=== PATIENT | male | born 1960 | race Caucasian/White ===

== ENCOUNTER 2017-05-15 09:30 | Emergency (ER) | payer OTHER ==
[~2017-05-15] VITALS: Ht 182.9 cm; Wt 92.9 kg
[~2017-05-15 09:30] MED LIST: ALBU1AER9 PO; EPP3/2 IM; FEXO1TAB46 PO; HYDR12.55; MONT4GRA PO; NXM/40 PO; SUCR1TAB29 PO
[2017-05-15 09:31] VITALS: TEMP 36.8; Ht 182.9 cm; Wt 92.9 kg
[2017-05-15] MEDS ORDERED: ONDANSETRON INJ 2 MG/ML 2 ML VIAL IV STA (09:51)
[2017-05-15] MEDS ORDERED: SODIUM CHLORIDE 0.9% 1000ML 2,000 ML IV STA (09:51)
[2017-05-15] MEDS ORDERED: VLM5CL PO (10:11)
[2017-05-15] MEDS ORDERED: FLNIN/ NAE (10:11)
[2017-05-15] MEDS ORDERED: HYDR25TA5 PO (10:11)
[2017-05-15] MEDS ORDERED: EPP3/2 IM (10:16)
[2017-05-15 10:24] LABS: BASO % 0.1 %; BASO ABS # 0.01 K/uL (0-0.2); COMPLETE YES; HEMATOCRIT 52.2 % (42-52); IG% 0.6 %; LYMPH % 16.5 %; MEAN CELL VOLUME 87.6 fL (80-100); MEAN CORPUSCULAR HEMOGLOBIN 30.4 pg (25-34); MEAN CORPUSCULAR HGB CONC 34.7 g/dl (32-36); MEAN PLATELET VOLUME 11.4 fL (7.4-10.4); MONO % 8.9 %; NEUT % 72.9 %; PLATELET COUNT 196 K/uL (130-400); RED BLOOD COUNT 5.96 M/uL (4.7-6.1); WHITE BLOOD COUNT 9.07 K/uL (4.8-10.8)
[2017-05-15 10:42] LABS: BUN/CREATININE RATIO 13.3 (10-20); CALCIUM 8.6 mg/dl (8.5-10.1); CREATININE 1.31 mg/dl (0.60-1.40); POTASSIUM 3.4 mmol/L (3.5-5.1)
--- NOTE | 2017-05-15 10:54 | DIAGNOSTIC IMAGING REPORT ---
ABDOMEN 2VIEW W/PA CHEST RTN HISTORY: 57 years-old Male abd pain w/ diarrhea acute generalized abdominal pain with diarrhea COMPARISON: None available TECHNIQUE: PA view the chest with erect and supine views of the abdomen FINDINGS: Cardiomediastinal and hilar silhouettes are within normal limits. No pneumothorax, pleural effusion, focal airspace consolidation or overt pulmonary edema. Bones of the chest appear grossly intact. Bowel gas pattern is nonobstructive. Multiple air-fluid levels are seen within bowel throughout the abdomen which appears to be within both large and small bowel. No pneumatosis or pneumoperitoneum. No organomegaly or urolith. Mild degenerative changes of the spine. IMPRESSION: 1. Nonobstructive bowel gas pattern with multiple air-fluid levels within bowel throughout the abdomen suggesting enteritis with diarrheal state. 2. No pneumoperitoneum or pneumatosis. 3. No acute cardiopulmonary process. The above report was generated using voice recognition software. It may contain grammatical, syntax or spelling errors. Electronically signed by: Ronnell Rubio M.D. 05/15/2017 10:52 AM Dictated Date/Time: 05/15/2017 10:49 AM
[2017-05-15 11:58] LABS: MANUAL MICROSCOPIC REQUIRED? NO; REVIEW REQ? NO; URINE APPEARANCE CLEAR (CLEAR); URINE BILIRUBIN NEG (NEG); URINE COLOR DK YELLOW; URINE NITRITE NEG (NEG); URINE PH 5.5 (4.5-7.5); URINE SPECIFIC GRAVITY 1.024 (1.000-1.030); UROBILINOGEN NEG (NEG); ZZUR CULT IF INDIC CLEAN CATCH NO
[2017-05-15 13:45] VITALS: BP 150/96; PULSE 87; O2SAT 95
--- NOTE | 2017-05-15 15:22 | EMERGENCY ROOM VISIT NOTE ---
History Report prepared by Maryibjermaine: Deedee Faust Under the Supervision of: Katy MartinezO. First contact with patient: 09:42 Chief Complaint: DIARRHEA Stated Complaint: STOMACH FLU History of Present Illness The patient is a 57 year old male who presents to the Emergency Room with complaints of persistent diarrhea since last night. He states "everything is running through me". So far today he has had 2 watery bowel movements. He believes he has the stomach flu, but has not been vomiting, although he is nauseous. He notes his Father is in a [facility]p and has a history of C-Diff, so he's unsure if he could have picked that up. He denies any recent travel, backpacking, hiking or recent antibiotic use. He has never undergone abdominal surgery. The patient denies headache, change in vision, fevers, chest pain, shortness of breath, abdominal pain, pain with urination, and melena. He does not take daily blood thinners. Source of History: patient Onset: last night Position: other (global) Timing: other (persistent) Associated Symptoms: + nausea, No fevers, No headache, No chest pain, No SOB , No vomiting, No abdominal pain, No melena, No urinary symptoms Review of Systems See HPI for pertinent positives & negatives. A total of 10 systems reviewed and were otherwise negative. Past Medical & Surgical Medical Problems: (1) Hypertension Surgical Problems: (1) S/P rotator cuff repair Family History Hypertension Social History Smoking Status: Never Smoker Alcohol Use: occasionally Drug Use: none Marital Status: Housing Status: lives with significant other Occupation Status: retired Current/Historical Medications Scheduled Epinephrine (Epipen), 0.3 MG IM UD Esomeprazole Magnesium (Nexium), 40 MG PO HS Fexofenadine Hcl (Suma), 180 MG PO QAM Fluticasone Propionate (Fluticasone Propionate), 1 SPRAY SHANTELL QAM Hydrochlorothiazide (Hydrochlorothiazide), 25 MG PO QAM Montelukast Sodium (Singulair), 4 MG PO HS Sucralfate (Carafate), 1 GM PO QID Scheduled PRN Diazepam (Diazepam), 0.5 TAB PO Q8H PRN for Anxiety Allergies Coded Allergies: Azithromycin (Unverified Allergy, Severe, SHORTNESS OF BREATH, 05/15/17) Latex (Unverified Allergy, Severe, HIVES, 05/15/17) Adhesives (Verified Allergy, Unknown, hives, 05/15/17) Bacitracin (Verified Allergy, Unknown, hives, 05/15/17) Neomycin (Verified Allergy, Unknown, hives, 05/15/17) Polymyxin B (Verified Allergy, Unknown, hives, 05/15/17) Physical Exam Vital Signs Date Time Temp Pulse Resp B/P (MAP) Pulse Ox O2 Delivery O2 Flow Rate FiO2 05/15/17 13:45 87 18 150/96 95 05/15/17 11:35 83 18 138/88 95 Room Air 05/15/17 09:31 36.8 99 17 184/116 95 Room Air Physical Exam GENERAL: Sitting up in bed, alert, well appearing, well nourished, no distress, non-toxic EYE EXAM: normal conjunctiva. OROPHARYNX: no exudate, no erythema, lips, buccal mucosa, and tongue normal and mucous membranes are moist NECK: supple, no nuchal rigidity, no adenopathy, non-tender LUNGS: Clear to auscultation. Normal chest wall mechanics HEART: no murmurs, S1 normal and S2 normal ABDOMEN: abdomen soft, non-tender, normo-active bowel sounds, no masses, no rebound or guarding. BACK: Back is symmetrical on inspection and there is no deformity, no midline tenderness, no CVA tenderness. SKIN: no rashes and no bruising UPPER EXTREMITIES: upper extremities are grossly normal. LOWER EXTREMITIES: No pitting edema. NEURO EXAM: Normal sensorium, cranial nerves II-XII intact, normal speech, no weakness of arms, no weakness of legs. Medical Decision & Procedures ER Provider Diagnostic Interpretation: Radiology results as stated below per my review and the radiologist's interpretation: ABDOMEN 2VIEW W/PA CHEST RTN HISTORY: 57 years-old Male abd pain w/ diarrhea acute generalized abdominal pain with diarrhea COMPARISON: None available TECHNIQUE: PA view the chest with erect and supine views of the abdomen FINDINGS: Cardiomediastinal and hilar silhouettes are within normal limits. No pneumothorax, pleural effusion, focal airspace consolidation or overt pulmonary edema. Bones of the chest appear grossly intact. Bowel gas pattern is nonobstructive. Multiple air-fluid levels are seen within bowel throughout the abdomen which appears to be within both large and small bowel. No pneumatosis or pneumoperitoneum. No organomegaly or urolith. Mild degenerative changes of the spine. IMPRESSION: 1. Nonobstructive bowel gas pattern with multiple air-fluid levels within bowel throughout the abdomen suggesting enteritis with diarrheal state. 2. No pneumoperitoneum or pneumatosis. 3. No acute cardiopulmonary process. The above report was generated using voice recognition software. It may contain grammatical, syntax or spelling errors. Electronically signed by: Ronnell Rubio M.D. 05/15/2017 10:52 AM Laboratory Results 05/15/17 09:57 Red Blood Count 5.96, Mean Corpuscular Volume 87.6, Mean Corpuscular Hemoglobin 30.4, Mean Corpuscular Hemoglobin Concent 34.7, Mean Platelet Volume 11.4, Neutrophils (%) (Auto) 72.9, Lymphocytes (%) (Auto) 16.5, Monocytes (%) (Auto) 8.9, Eosinophils (%) (Auto) 1.0, Basophils (%) (Auto) 0.1, Neutrophils # (Auto) 6.61, Lymphocytes # (Auto) 1.50, Monocytes # (Auto) 0.81, Eosinophils # (Auto) 0.09, Basophils # (Auto) 0.01 05/15/17 09:57 Test 05/15/17 09:57 05/15/17 11:42 White Blood Count 9.07 K/uL (4.8-10.8) Red Blood Count 5.96 M/uL (4.7-6.1) Hemoglobin 18.1 g/dL (14.0-18.0) Hematocrit 52.2 % (42-52) Mean Corpuscular Volume 87.6 fL (80-100) Mean Corpuscular Hemoglobin 30.4 pg (25-34) Mean Corpuscular Hemoglobin Concent 34.7 g/dl (32-36) Platelet Count 196 K/uL (130-400) Mean Platelet Volume 11.4 fL (7.4-10.4) Neutrophils (%) (Auto) 72.9 % Lymphocytes (%) (Auto) 16.5 % Monocytes (%) (Auto) 8.9 % Eosinophils (%) (Auto) 1.0 % Basophils (%) (Auto) 0.1 % Neutrophils # (Auto) 6.61 K/uL (1.4-6.5) Lymphocytes # (Auto) 1.50 K/uL (1.2-3.4) Monocytes # (Auto) 0.81 K/uL (0.11-0.59) Eosinophils # (Auto) 0.09 K/uL (0-0.5) Basophils # (Auto) 0.01 K/uL (0-0.2) RDW Standard Deviation 43.5 fL (36.4-46.3) RDW Coefficient of Variation 13.7 % (11.5-14.5) Immature Granulocyte % (Auto) 0.6 % Immature Granulocyte # (Auto) 0.05 K/uL (0.00-0.02) Anion Gap 8.0 mmol/L (3-11) Est Creatinine Clear Calc Drug Dose 66.7 ml/min Estimated GFR () 68.6 Estimated GFR (Non- 59.2 BUN/Creatinine Ratio 13.3 (10-20) Calcium Level 8.6 mg/dl (8.5-10.1) Total Bilirubin 1.1 mg/dl (0.2-1) Direct Bilirubin 0.2 mg/dl (0-0.2) Aspartate Amino Transf (AST/SGOT) 26 U/L (15-37) Alanine Aminotransferase (ALT/SGPT) 49 U/L (12-78) Alkaline Phosphatase 99 U/L (45-117) Total Protein 7.7 gm/dl (6.4-8.2) Albumin 3.8 gm/dl (3.4-5.0) Lipase 124 U/L (73-393) Urine Color DK YELLOW Urine Appearance CLEAR (CLEAR) Urine pH 5.5 (4.5-7.5) Urine Specific Orion 1.024 (1.000-1.030) Urine Protein NEG (NEG) Urine Glucose (UA) NEG (NEG) Urine Ketones NEG (NEG) Urine Occult Blood NEG (NEG) Urine Nitrite NEG (NEG) Urine Bilirubin NEG (NEG) Urine Urobilinogen NEG (NEG) Urine Leukocyte Esterase NEG (NEG) Urine WBC (Auto) 1-5 /hpf (0-5) Urine RBC (Auto) 0-4 /hpf (0-4) Urine Hyaline Casts (Auto) 1-5 /lpf (0-5) Urine Epithelial Cells (Auto) 5-10 /lpf (0-5) Urine Bacteria (Auto) NEG (NEG) Date/Time Source Procedure Growth Status 05/15/17 10:10 Stool C.difficile Toxin B Gene (PCR) - Final No C. difficile toxin B gene detected Complete Laboratory results per my review. Medications Administered Medications (Trade) Dose Ordered Sig/Samir Route Start Time Stop Time Status Last Admin Dose Admin Sodium Chloride 2,000 ml @ 999 mls/hr Q2H1M STAT IV 05/15/17 09:51 05/15/17 11:51 DC 05/15/17 10:15 999 MLS/HR Ondansetron HCl (Zofran Inj) 4 mg NOW STAT IV 05/15/17 09:51 05/15/17 09:53 DC 05/15/17 10:15 4 MG ED Course ED COURSE: Vital signs were reviewed and showed the patient is hypertensive and tachycardic. The patients medical record was reviewed The above diagnostic studies were performed and reviewed. ED treatments and interventions as stated above. 0946: The patient was evaluated in room A9. A complete history and physical examination was performed. 0951: Zofran 4 mg IV, NSS 2000 ml @ 999 mls/hr IV. 1210: Upon reevaluation, the patient is feeling well and resting comfortably. I discussed my findings with the patient and he understands and agrees with the treatment plan. Based on the patients age, coexisting illnesses, exam and lab findings the decision to treat as an outpatient was made. The patient remained stable while under my care. The patient appeared well at the time of discharge. Medical Decision Differential diagnoses includes but is not limited to gastritis, peptic ulcer disease, GERD, gallbladder disease, pancreatitis, small bowel obstruction, acute coronary syndrome, pericarditis, ischemic bowel, irritable bowel disease, irritable bowel syndrome, appendicitis, diverticulitis, malignancy, hernia, urinary tract infection, torsion, perforation, trauma, infectious. Patient is a 57-year-old male who presents to ER for nausea associated with profuse diarrhea which started in the past 24 hours. He is on has 2 bowel movements this morning. No blood in his stool or dark tarry stools. No recent travel, trips, drinking from streams or recent antibiotics. He was just in the [facility] and concerned about C. difficile. Afebrile. Vitals are stable. CBC along with BMP, LFTs, bilirubin and lipase is unremarkable. UA was negative. CT was negative. On repeat evaluation his abdominal exam was completely benign. Obstruction series was negative. Patient was updated regards to findings. Patient was discharged to follow-up with PCP. Will await further stool cultures prior to taking any antidiarrheals. Discussed with Pt concerning signs and symptoms to watch out for. Pt was instructed to follow up with their PCP and discussed with the patient their option to return to the ED at anytime for persistent or worsening symptoms. The appropriate anticipatory guidance and out-patient management, including indications for return to the emergency department, were explained at length to the patient and understood. Medication Reconcilliation Current Medication List: was personally reviewed by me Blood Pressure Screening Patient's blood pressure: Elevated blood pressure Blood pressure disposition: Elevated BP felt to be situational Impression Primary Impression: Diarrhea Additional Impression: Hypokalemia Scribe Attestation The scribe's documentation has been prepared under my direction and personally reviewed by me in its entirety. I confirm that the note above accurately reflects all work, treatment, procedures, and medical decision making performed by me. Departure Information Dispostion Home / Self-Care Referrals Jhony Sutherland M.D. (PCP) Patient Instructions ED Diarrhea Viral, My [facility] Additional Instructions Please follow up with your primary care doctor with in the next 24 hours. Any worsening of your symptoms, please return to the ED immediately. This includes any fevers greater than 100.4, worsening pain, chest pain, shortness breath, persistent nausea, vomiting, unable to eat or drink, or any other concerning signs or symptoms from your standpoint. Problem Qualifiers Primary Impression: Diarrhea Diarrhea type: unspecified type Qualified Codes: R19.7 - Diarrhea, unspecified
== END 2017-05-15 13:45 | disposition home or self-care (01) ==
LOC: C.EDB 09:30 → C.EDA 13:45
DX: R19.7 Diarrhea, unspecified (principal); E87.6 Hypokalemia; I10 Essential (primary) hypertension